=== PATIENT | male | born 1945 | race Caucasian/White ===

== ENCOUNTER 2020-11-11 09:35 | Emergency (ER) | payer MEDICARE, OTHER ==
[2020-11-11 10:46] LABS: BASOPHIL 0.7 % (0-2); EOSINOPHIL 3.5 % (0-7); HCT 49.2 % (42.0-52.0); HGB 16.9 g/dl (13.2-18.0); LYMPHOCYTE 10.3 % (15-48); MCH 30.9 pg (25.0-31.0); MCHC 34.3 g/dL (32.0-36.0); MCV 89.9 fL (78.0-100.0); MONOCYTE 7.8 % (0-12); NEUTROPHIL 77.3 % (41-80); NRBC 0; PLT 142 K/uL (150-400); RBC 5.47 M/uL (4.70-6.00); RDW 12.7 % (11.5-14.0); WBC 8.2 K/uL (4.0-10.5)
[2020-11-11 11:25] LABS: ALBUMIN 3.8 g/dL (3.4-5.0); BILIRUBIN - TOTAL 0.5 mg/dL (0.2-1.0); BUN/CREAT RATIO (CALC) 29.6 RATIO; CREATININE 0.81 mg/dL (0.67-1.17); POTASSIUM 4.3 mmol/L (3.5-5.1); TOTAL PROTEIN 6.8 g/dL (6.4-8.2)
[2020-11-11] MEDS ORDERED: ONDANSETRON ODT4 MG PO (12:12)
[2020-11-11] MEDS ORDERED: ANTIVERT25 MG PO (12:12)
== END 2020-11-11 12:50 | disposition home or self-care (01) ==
LOC: FER 09:35
PROVIDERS: Emergency Medicine
DX: R42 Dizziness and giddiness (principal); E11.9 Type 2 diabetes mellitus without complications; I10 Essential (primary) hypertension; Z79.84 Long term (current) use of oral hypoglycemic drugs
CPT/HCPCS: 36415; 70450; 80053; 85025; J2405; J3360